=== PATIENT | female | born 1995 | race Two or more races ===

== ENCOUNTER 2016-09-07 12:32 | Emergency (ER) | payer OTHER ==
[2016-09-07 12:55] VITALS: BP 131/86; PULSE 83; TEMP 98.2; BMI 27.1
[2016-09-07] MEDS ORDERED: SODIUM CHLORIDE 1,000 ML IV STA (13:20)
[2016-09-07] MEDS ORDERED: ONDANSETRON 4 MG/2 ML VIAL IVPUSH ONE (13:20)
--- NOTE | 2016-09-07 13:26 | PDOC ---
History of Present Illness - General Chief Complaint: Nausea/Vomiting Stated Complaint: VOMITTING Time Seen by Provider: 09/07/16 12:49 History Source: Patient, Family Exam Limitations: No Limitations - History of Present Illness Travel History: No Initial Comments: 09/07/16 13:21 came to emergency department with acute onset of vomiting this morning with some mild nauseousness last night. States has had frequent / alterable episodes of emesis now retching with bile. Denies fever, denies any known exposure to tainted foods, no recent travel, is currently unemployed. Uncertain to status, and states last menstrual period that was normal was early July , probable July 21. See 6 years ago that ended in miscarriage, was only other . Denies dysuria, denies any bleeding from bowels or diarrhea, denies any vaginal drainage or discharge. Timing/Duration: reports: getting worse, changing over time Quality: reports: moderate, cramping, stabbing Abdominal Pain Onset Location: reports: epigastric, generalized abdomen Aggravating Factors: improves with: Eating Alleviating Factors: improves with: None Past History - Travel Traveled outside of the country in the last 30 days: No Close contact w/someone who was outside of country & ill: No - Past Medical History Allergies/Adverse Reactions: Allergies Allergy/AdvReac Type Severity Reaction Status Date / Time No Known Allergies Allergy Verified 09/07/16 12:42 Home Medications: Ambulatory Orders Ondansetron [Zofran *Odt*] 4 mg SL PRN PRN #14 od.tablet 09/07/16 Asthma: Yes GI Disorders: Yes (gastritis) Other medical history: pcos - Psycho/Social/Smoking Cessation Hx Anxiety: No Suicidal Ideation: No Smoking History: Never smoked Have you smoked in the past 12 months: No Information on smoking cessation initiated: No Hx Alcohol Use: No Drug/Substance Use Hx: No Substance Use Type: None Abd/GI Specific PMHX - Complaint Specific PMHX Diverticulitis: No Gall Bladder Disease: No Review of Systems - Review of Systems Able to Perform ROS?: Yes Is the patient limited Welsh proficient: Yes Constitutional: Yes: Symptoms Reported, See HPI, Chills, Malaise. No: Fever HEENTM: Yes: See HPI. No: Symptoms Reported Respiratory: Yes: See HPI. No: Symptoms reported, Cough ABD/GI: Yes: Symptoms Reported, See HPI, Diarrhea, Nausea, Vomiting, Abdominal cramping. No: Constipated : Yes: See HPI. No: Symptoms Reported, Burning, Dysuria, Discharge Musculoskeletal: Yes: See HPI. No: Symptoms Reported All Other Systems: Reviewed and Negative *Physical Exam - Vital Signs Last Vital Signs Temp Pulse Resp BP Pulse Ox 98.2 F 83 20 131/86 100 09/07/16 12:42 09/07/16 12:42 09/07/16 12:42 09/07/16 12:42 09/07/16 12:42 - Physical Exam General Appearance: Yes: Nourished, Appropriately Dressed, Apparent Distress, Moderate Distress, Severe Distress HEENT: positive: VIKI, Normal ENT Inspection, TMs Normal, Pharynx Normal Neck: positive: Supple. negative: Tender Respiratory/Chest: positive: Lungs Clear, Normal Breath Sounds Cardiovascular: positive: Regular Rate Gastrointestinal/Abdominal: positive: Tender, Soft, Other (use tenderness and mild cramping, no rebound or guarding, no hepatosplenomegaly, no particular quadrant with pain) Musculoskeletal: positive: Normal Inspection. negative: CVA Tenderness Extremity: positive: Normal Capillary Refill, Normal Inspection, Normal Range of Motion Integumentary: positive: Dry, Warm, Pale, Clammy Neurologic: positive: stud driver II-XII NML intact, Fully Oriented, Alert, Normal Mood/ Affect, Normal Response, Motor Strength 5/5 ED Treatment Course - LABORATORY CBC & Chemistry Diagram: 09/07/16 13:33 09/07/16 13:33 Progress Note - Progress Note Progress Note: Acute onset of vomiting, possible hyperemesis versus gastroenteritis. We will obtain a 6 labs, urinalysis and testing,. Will provide 2 L of IV fluid and IV Zofran and reevaluate. Medical Decision Making - Medical Decision Making 09/07/16 15:10 after second round of IV Zofran, and on second liter of IV fluid has continued vomiting and abdominal pain. Will try Reglan and if without success Compazine 09/07/16 16:58 Improved after third liter of IV fluid and Reglan. Ultrasound was negative for pathology, and requests discharge. Will follow up with her PMD in [place] tomorrow or Sunday *DC/Admit/Observation/Transfer Diagnosis at time of Disposition: Gastroenteritis - Discharge Dispostion Disposition: HOME Condition at time of disposition: Stable Admit: No - Prescriptions Prescriptions: Ondansetron [Zofran *Odt*] 4 mg SL PRN PRN #14 od.tablet PRN Reason: vomiting - Patient Instructions Printed Discharge Instructions: DI for Vomiting -- Adult Additional Instructions: Rest, drink lots of fluids: Teas, water, soups Katie freda, carbonated beverages for the bubbles May try peppermint teas Avoid heavy , spicy or fatty foods until symptoms have resolved Avoid contact with others until fevers and symptoms resolved Lots of handwashing and good hygiene Continue [id number] medications for symptomatic relief Tylenol or Motrin for fever and pain May use Zofran-one tablet dissolved on tongue as needed for nauseousness. May repeat times one every 8 hours Followup with private physician in one to 2 days as needed Return to emergency department for worsened symptoms, fevers, dehydration - Post Discharge Activity Work/School Note: Back to Work
[2016-09-07] MEDS ORDERED: ONDANSETRON 4 MG/2 ML VIAL ONE ×2 (13:27→14:18)
[2016-09-07] MEDS ORDERED: SODIUM CHLORIDE 1,000 ML IV SCH (13:30)
[2016-09-07 13:36] LABS: BASO % 0.2 % (0-2.0); EOS % 0.2 % (0-4.5); HEMATOCRIT 38.7 % (32.4-45.2); HEMOGLOBIN 13.3 GM/dL (10.7-15.3); LYMPH % 10.6 % (8-40); MCH 30.8 pg (25.7-33.7); MCHC 34.3 g/dl (32.0-36.0); MEAN CELL VOLUME 89.7 fl (80-96); MONO % 3.3 % (3.8-10.2); NEUT % 85.7 % (42.8-82.8); PLATELET COUNT 209 K/MM3 (134-434); RBC 4.32 M/mm3 (3.60-5.2); RDW 13.1 % (11.6-15.6); WHITE BLOOD COUNT 9.5 K/mm3 (4.0-10.0)
[2016-09-07 14:02] LABS: ALBUMIN 4.1 g/dl (3.4-5.0); ALK PHOS 60 U/L (45-117); ANION GAP 13 (8-16); BILIRUBIN,TOTAL 1.1 mg/dL (0.2-1.0); BLOOD UREA NITROGEN 9 mg/dL (7-18); CALCIUM 9.9 mg/dL (8.5-10.1); CHLORIDE 101 mmol/L (98-107); CO2 23 mmol/L (21-32); CREATININE 0.7 mg/dL (0.55-1.02); GLUCOSE,RANDOM 159 mg/dL (74-106); LIPASE 115 U/L (73-393); POTASSIUM 4.2 mmol/L (3.5-5.1); SGOT/AST 30 U/L (15-37); SGPT/ALT 40 U/L (12-78); SODIUM 137 mmol/L (136-145); TOT PROT 7.7 g/dl (6.4-8.2)
[2016-09-07] MEDS ORDERED: METOCLOPRAMIDE HCL INJECTION 10 MG/2 ML VIAL IVPUSH ONE (15:10)
[2016-09-07] MEDS ORDERED: METOCLOPRAMIDE HCL INJECTION 10 MG/2 ML VIAL ONE (15:12)
[2016-09-07] MEDS ORDERED: SODIUM CHLORIDE 0.9% 1000 ML INFUS.BAG IV ONE (15:19)
== END 2016-09-07 16:50 | disposition home or self-care (01) ==
LOC: JER 12:32
PROC: 3E0337Z Introduction of Electrolytic and Water Balance Substance into Peripheral Vein, Percutaneous Approach (ICD-10-PCS; principal; 2016-09-07)
PROC: 3E033GC Introduction of Other Therapeutic Substance into Peripheral Vein, Percutaneous Approach (ICD-10-PCS; 2016-09-07)
DX: K52.9 Noninfective gastroenteritis and colitis, unspecified (principal); J45.909 Unspecified asthma, uncomplicated; E28.2 Polycystic ovarian syndrome
CPT/HCPCS: 36415; 76705-TC; 80053; 82009; 83690; 84702; 85025; 99282-25; J7030

== ENCOUNTER 2018-06-14 13:00 | Emergency (ER) | payer OTHER ==
[2018-06-14 13:12] VITALS: BMI 26.9
[2018-06-14] MEDS ORDERED: ONDANSETRON 4 MG/2 ML VIAL IVPUSH ONE (13:18)
[2018-06-14] MEDS ORDERED: SODIUM CHLORIDE 1,000 ML IV STA ×2 (13:18→16:54)
[2018-06-14] MEDS ORDERED: PANTOPRAZOLE SODIUM 40 MG in SODIUM CHLORIDE 100 ML IVPB ONE (13:18)
[2018-06-14] MEDS ORDERED: ONDANSETRON 4 MG/2 ML VIAL ONE (13:23)
[2018-06-14] MEDS ORDERED: PANTOPRAZOLE SODIUM 40 MG/100 ML BAG IVPB ONE (13:24)
--- NOTE | 2018-06-14 13:51 | PDOC ---
*Physical Exam - Vital Signs Last Vital Signs Temp Pulse Resp BP Pulse Ox 98.4 F 82 20 131/77 98 06/14/18 13:05 06/14/18 13:05 06/14/18 13:05 06/14/18 13:05 06/14/18 13:05 ED Treatment Course - LABORATORY CBC & Chemistry Diagram: 06/14/18 13:45 06/14/18 14:37 Medical Decision Making - Medical Decision Making 06/14/18 13:51 Pt seen by Midlevel Provider under my direct supervision Ancillary studies reviewed I agree with plan as outlined by Midlevel Provider *DC/Admit/Observation/Transfer Diagnosis at time of Disposition: Nausea vomiting and diarrhea - Discharge Dispostion Disposition: HOME Condition at time of disposition: Improved - Prescriptions Prescriptions: Diphenhydramine [Benadryl Capsule -] 25 mg PO TID PRN #15 capsule PRN Reason: Nausea And/Or Vomiting Metoclopramide HCl [Reglan] 10 mg PO BID PRN #12 tablet PRN Reason: Nausea And/Or Vomiting - Referrals - Patient Instructions Printed Discharge Instructions: DI for Vomiting -- Adult Additional Instructions: Please take medication for nausea. Follow a bland diet. Eat starchy foods and return here if s/ return - Post Discharge Activity
[2018-06-14 13:54] LABS: BASO % 0.2 % (0-2.0); HEMATOCRIT 38.4 % (32.4-45.2); HEMOGLOBIN 12.5 GM/dL (10.7-15.3); LYMPH % 7.6 % (8-40); MCH 29.8 pg (25.7-33.7); MCHC 32.5 g/dl (32.0-36.0); MEAN CELL VOLUME 91.7 fl (80-96); MEAN PLT VOLUME 9.9 fl (7.5-11.1); MONO % 2.2 % (3.8-10.2); PLATELET COUNT 217 K/MM3 (134-434); RBC 4.19 M/mm3 (3.60-5.2); RDW 12.9 % (11.6-15.6); WHITE BLOOD COUNT 11.1 K/mm3 (4.0-10.0)
--- NOTE | 2018-06-14 14:24 | PDOC ---
History of Present Illness - General Chief Complaint: Nausea/Vomiting Stated Complaint: COLD SYMPTOMS Time Seen by Provider: 06/14/18 13:15 History Source: Patient Exam Limitations: No Limitations - History of Present Illness Travel History: No Initial Comments: 06/14/18 14:01 22-year-old female presents to ED with complaints of nausea vomiting and diarrhea for the past day. Patient states history of colitis and PCO S. Patient denies recent travel recent illness or change in diet. Patient denies fever, chills or urinary complaints. Patient denies irregular menses or vaginal discharge Timing/Duration: reports: constant Quality: reports: mild, cramping Abdominal Pain Onset Location: reports: generalized abdomen Pain Radiation: reports: no radiation Activities at Onset: reports: none Aggravating Factors: improves with: None Alleviating Factors: improves with: None Past History - Travel Traveled outside of the country in the last 30 days: No Close contact w/someone who was outside of country & ill: No - Past Medical History Allergies/Adverse Reactions: Allergies Allergy/AdvReac Type Severity Reaction Status Date / Time No Known Allergies Allergy Verified 06/14/18 15:24 Home Medications: Ambulatory Orders NK [No Known Home Medication] 06/14/18 Asthma: Yes COPD: No CHF: No DVT: No GI Disorders: Yes (gastritis,colitis,colonoscopy) Disorders: Yes (PCOS) - Suicide/Smoking/Psychosocial Hx Smoking History: Never smoked Have you smoked in the past 12 months: No Hx Alcohol Use: No Drug/Substance Use Hx: No Substance Use Type: None Patient Lives Alone: No Lives with/in: parents Abd/GI Specific PMHX - Complaint Specific PMHX Diverticulitis: No Gall Bladder Disease: No Review of Systems - Review of Systems Able to Perform ROS?: No Is the patient limited Hebrew proficient: No Constitutional: Yes: Weakness HEENTM: No: Symptoms Reported Respiratory: No: Symptoms reported Cardiac (ROS): No: Symptoms Reported ABD/GI: Yes: Diarrhea, Nausea, Poor Appetite, Poor Fluid Intake, Vomiting, Abdominal cramping : No: Symptoms Reported Musculoskeletal: No: Symptoms Reported Integumentary: No: Symptoms Reported Neurological: No: Symptoms reported *Physical Exam - Vital Signs Last Vital Signs Temp Pulse Resp BP Pulse Ox 98.4 F 82 20 131/77 98 06/14/18 13:05 06/14/18 13:05 06/14/18 13:05 06/14/18 13:05 06/14/18 13:05 - Physical Exam General Appearance: Yes: Nourished, Appropriately Dressed. No: Apparent Distress HEENT: negative: Pale Conjunctivae Neck: positive: Normal Thyroid, Supple Respiratory/Chest: positive: Lungs Clear, Normal Breath Sounds. negative: Respiratory Distress, Accessory Muscle Use Cardiovascular: positive: Regular Rhythm, Regular Rate. negative: Murmur Gastrointestinal/Abdominal: positive: Normal Bowel Sounds, Soft, Tenderness ( generalized). negative: Distended, Guarding, Rebound Musculoskeletal: negative: CVA Tenderness Extremity: negative: Pedal Edema Integumentary: positive: Normal Color, Warm, Moist Neurologic: positive: Motor Strength 5/5 ( ambulatory) ED Treatment Course - LABORATORY CBC & Chemistry Diagram: 06/14/18 13:45 06/14/18 14:37 - Medications Given in the ED: ED Medications Discontinued Medications Generic Name Dose Route Start Last Admin Trade Name Freq PRN Reason Stop Dose Admin Pantoprazole Sodium 40 mg/ 100 mls @ 200 mls/hr 06/14/18 13:18 06/14/18 14:03 Sodium Chloride IVPB 06/14/18 13:47 200 mls/hr ONCE ONE Administration Sodium Chloride 1,000 mls @ 1,000 mls/hr 06/14/18 13:18 06/14/18 14:03 Normal Saline - IV 06/14/18 14:17 1,000 mls/hr ASDIR STA Administration Ondansetron HCl 4 mg 06/14/18 13:18 06/14/18 14:03 Zofran Injection IVPUSH 06/14/18 13:19 4 mg ONCE ONE Administration Medical Decision Making - Medical Decision Making 06/14/18 14:03 Chief complaint: Nausea vomiting diarrhea for 2 days associated with generalized cramping presently patient history of PCO S and colitis but has no other complaints at this time. Exam: Patient actively vomiting in the ER and stating she feels weak. Otherwise no acute finding. Patient placed, on a stretcher. Plan: Labs, fluids, Zofran urine urine 06/14/18 17:12 Laboratory Tests 06/14/18 06/14/18 06/14/18 13:45 14:37 14:44 WBC 11.1 H Hgb 12.5 Hct 38.4 Absolute Neuts (auto) 10.0 H Neutrophils % 90.0 H Lymphocytes % 7.6 L D Monocytes % 2.2 L Sodium 139 Potassium 3.6 Chloride 109 H Carbon Dioxide 16 L Anion Gap 14 BUN 11 Random Glucose 133 H Calcium 8.4 L Magnesium 1.6 L Total Bilirubin 0.4 AST 16 ALT 17 Albumin 3.7 Lipase 71 L Urine Glucose (UA) 2+ H Urine Ketones 4+ H Urine Nitrite Negative Urine Bilirubin Negative Ur Leukocyte Esterase Negative Urine HCG, Qual Negative Pt ordered for reglan due to continual c/o nausea yet requesting ice chips and juice. Pt ordered for 2gm of ms04 and a 2nd ltr of ivf. 06/14/18 18:07 pt drinking AJ. Pt wants to be discharged. Pt requesting reglan and DPH for rx *DC/Admit/Observation/Transfer Diagnosis at time of Disposition: Nausea vomiting and diarrhea - Discharge Dispostion Disposition: HOME Condition at time of disposition: Improved - Referrals - Patient Instructions Printed Discharge Instructions: DI for Vomiting -- Adult Additional Instructions: Please take medication for nausea. Follow a bland diet. Eat starchy foods and return here if s/ return - Post Discharge Activity
[2018-06-14 15:07] LABS: HCG,QUALITATIVE URINE Negative
[2018-06-14 15:17] LABS: URINE APPEARANCE CLEAR; URINE BILIRUBIN NEGATIVE (NEGATIVE); URINE COLOR YELLOW; URINE GLUCOSE (UA) 2+ (NEGATIVE); URINE KETONE 4+ (NEGATIVE); URINE LEUK ESTERASE NEGATIVE (NEGATIVE); URINE NITRITE NEGATIVE (NEGATIVE); URINE PROTEIN TRACE (NEGATIVE); URINE UROBILINOGEN 0.2 mg/dL (0.2-1.0)
[2018-06-14 15:26] LABS: ALBUMIN 3.7 g/dl (3.4-5.0); ALK PHOS 62 U/L (45-117); ANION GAP 14 MMOL/L (8-16); BILIRUBIN,TOTAL 0.4 mg/dL (0.2-1); BLOOD UREA NITROGEN 11 mg/dL (7-18); CALCIUM 8.4 mg/dL (8.5-10.1); CHLORIDE 109 mmol/L (98-107); CO2 16 mmol/L (21-32); CREATININE 0.6 mg/dL (0.55-1.3); GLUCOSE,RANDOM 133 mg/dL (74-106); LIPASE 71 U/L (73-393); MAGNESIUM 1.6 mg/dL (1.8-2.4); POTASSIUM 3.6 mmol/L (3.5-5.1); SGOT/AST 16 U/L (15-37); SGPT/ALT 17 U/L (13-61); SODIUM 139 mmol/L (136-145); TOT PROT 6.9 g/dl (6.4-8.2)
[2018-06-14] MEDS ORDERED: METOCLOPRAMIDE HCL INJECTION 10 MG/2 ML VIAL IVPB ONE (16:54)
[2018-06-14] MEDS ORDERED: MAGNESIUM SULF 50% (8.12 MEQ/2 ML-1 GM VIAL) IVPB ONE (16:54)
[2018-06-14] MEDS ORDERED: METOCLOPRAMIDE HCL INJECTION 10 MG/2 ML VIAL ONE (17:02)
[2018-06-14] MEDS ORDERED: MAGNESIUM 1GM/D5W - 2 GM/200 ML IVPB IVPB ONE (17:02)
[2018-06-14 18:11] VITALS: BP 119/59; PULSE 77; TEMP 97.2
== END 2018-06-14 18:18 | disposition home or self-care (01) ==
LOC: JER 13:00
PROC: 3E033GC Introduction of Other Therapeutic Substance into Peripheral Vein, Percutaneous Approach (ICD-10-PCS; principal; 2018-06-14)
PROC: 3E0337Z Introduction of Electrolytic and Water Balance Substance into Peripheral Vein, Percutaneous Approach (ICD-10-PCS; 2018-06-14)
DX: R11.2 Nausea with vomiting, unspecified (principal); R19.7 Diarrhea, unspecified
CPT/HCPCS: 36415; 80053; 81003; 83690; 83735; 84703; 85025; 87086; 96361; 96365; 96375; 99282-25; J7030